=== PATIENT | male | born 1990 | race African-American/Black ===

== ENCOUNTER 2018-08-29 17:38 | Emergency (ER) | payer OTHER ==
--- NOTE | 2018-08-29 18:05 | PDOC ---
Rapid Medical Evaluation Chief Complaint: Injury Time Seen by Provider: 08/29/18 17:42 Medical Evaluation: 08/29/18 18:03 I performed a brief in person evaluation. CC: left hand pain HPI: Pt is a 27 YO male who was dx with a hand fracture at another facility and has an ortho glass splint on. Pt states that the facility told him to follow up with the ED. Pt's DC paperword states for him to follow up with ortho. Pt has not followed up with orthopedics. PE: Skin: Clear Lungs: Clear Heart: RRR MS: Left hand in orthoglass splint. Sensation intact. Neuro: Alert Psych: Appropriate affect Pt will go to [facility] for further evaluation. Discharge Disposition - Diagnosis Hand fracture Qualifiers: Encounter type: subsequent encounter Fracture type: closed Laterality: left Fracture healing: with routine healing Qualified Code(s): S62.92XD - Unspecified fracture of left wrist and hand, subsequent encounter for fracture with routine healing - Discharge Dispostion Condition at time of disposition: Stable - Referrals - Patient Instructions - Post Discharge Activity
[2018-08-29 18:07] VITALS: BP 122/74; PULSE 75; TEMP 98.8; BMI 30.8
[2018-08-29] MEDS ORDERED: KETOROLAC TROMETHAMINE 60 MG/2 ML VIAL IM ONE (18:11)
[2018-08-29] MEDS ORDERED: KETOROLAC TROMETHAMINE 60 MG/2 ML VIAL ONE (18:22)
--- NOTE | 2018-08-29 18:37 | PDOC ---
History of Present Illness - General Chief Complaint: Injury Stated Complaint: HAND INJURY Time Seen by Provider: 08/29/18 17:42 History Source: Patient - History of Present Illness Occurred: reports: yesterday Severity: reports: moderate Pain Location: reports: upper extremity Past History - Past Medical History Allergies/Adverse Reactions: Allergies Allergy/AdvReac Type Severity Reaction Status Date / Time No Known Allergies Allergy Verified 08/29/18 18:06 Home Medications: Ambulatory Orders Tramadol HCl 50 mg PO Q6H #15 tablet MDD 200 mg 08/29/18 COPD: No HTN: No - Surgical History GI Surgery: No Neurologic Surgery: No - Immunization History Immunization Up to Date: Yes - Suicide/Smoking/Psychosocial Hx Smoking History: Never smoked Have you smoked in the past 12 months: No Information on smoking cessation initiated: No Hx Alcohol Use: No Drug/Substance Use Hx: No Review of Systems - Review of Systems Musculoskeletal: Yes: Joint Pain, Joint Swelling *Physical Exam - Vital Signs Last Vital Signs Temp Pulse Resp BP Pulse Ox 98.8 F 75 18 122/74 100 08/29/18 18:02 08/29/18 18:02 08/29/18 18:02 08/29/18 18:02 08/29/18 18:02 - Physical Exam General Appearance: Yes: Appropriately Dressed. No: Apparent Distress HEENT: positive: Normal Voice Neck: positive: Supple Respiratory/Chest: negative: Respiratory Distress Extremity: positive: Other (splint in place to LUE) Integumentary: positive: Dry, Warm Neurologic: positive: Fully Oriented, Alert, Normal Mood/Affect Moderate Sedation - Procedure Monitoring Vital Signs: Procedure Monitoring Vital Signs Temperature 98.8 F 08/29/18 18:02 Pulse Rate 75 08/29/18 18:02 Respiratory Rate 18 08/29/18 18:02 Blood Pressure 122/74 08/29/18 18:02 O2 Sat by Pulse Oximetry (%) 100 08/29/18 18:02 ED Treatment Course - RADIOLOGY Radiology Studies Ordered: Category Date Time Status WRIST W/HAND-LEFT* [RAD] Stat Radiology 08/29/18 18:09 Ordered Medical Decision Making - Medical Decision Making 08/29/18 18:33 27-year-old male, states he was diagnosed with possible hand versus wrist fracture at [facility] yesterday after falling off a truck at work. States staff performed hand/wrist xray and that he was told due to hematoma, was not able to r/o possible fx on xray. Splint was placed and per pt, was told to go to urgent care possibly for repeat x-ray but decided to come to [facility]. Reports worsening swelling to L hand now and c/o pain. Unclear if pt elevating extremity at home though reports he does use sling. Currently taking Motrin with no relief See exam Possible L hand/wrist fx dx at OSH yesterday, splint in place, c/o pain -pain control -rpt xray here 08/29/18 19:10 Xray read as neg for fx. Will keep pt splint in place and use sling to improve swelling. Discharge with ortho follow-up tomorrow *DC/Admit/Observation/Transfer Diagnosis at time of Disposition: Hand sprain Qualifiers: Encounter type: initial encounter Laterality: left Qualified Code(s): S63.92XA - Sprain of unspecified part of left wrist and hand, initial encounter - Discharge Dispostion Disposition: HOME Condition at time of disposition: Improved - Prescriptions Prescriptions: Tramadol HCl 50 mg PO Q6H #15 tablet MDD 200 mg - Referrals Referrals: Kade Gonsalez DO [Staff Physician] - - Patient Instructions Printed Discharge Instructions: How to Use a Sling Additional Instructions: Xray negative for fracture Keep splint in place and lease elevate extremity above heart level by using sling and placing a pillow under your left arm while you sleep. Take medications as directed. Please call Dr. Gonsalez of orthopedics tomorrow - Post Discharge Activity Forms/Work/School Notes: Back to Work
== END 2018-08-29 19:30 | disposition home or self-care (01) ==
LOC: JERFT 17:38
DX: S63.8X2D Sprain of other part of left wrist and hand, subsequent encounter (principal); V64 Occupant of heavy transport vehicle injured in collision with heavy transport vehicle or bus
CPT/HCPCS: 73110-TC-LR-FY; 73130-TC-LT-FY; 99281-25